=== PATIENT | male | born 1990 | race Two or more races ===

== ENCOUNTER → 2025-03-13 | Outpatient (CLI) | payer OTHER, SELFPAY ==
--- NOTE | 2025-03-13 09:44 | XR_ITS ---
EXAMINATION: Ankle, left 3 views . Technique: Ankle AP, oblique, lateral 3 views Date and time of exam: March 13, 2025 [id number] hours INDICATIONS: Ankle injury one week ago with pain FINDINGS: No ankle fracture or dislocation Mild osteoarthritis tibiotalar joint IMPRESSION: No ankle fracture or dislocation
== END | disposition home or self-care (01) ==
LOC: CDIM 09:12
PROVIDERS: PCP Physician Assistant; Referring Provider Physician Assistant; Visit Provider Physician Assistant
DX: S93.402A Sprain of unspecified ligament of left ankle, initial encounter (principal); X58.XXXA Exposure to other specified factors, initial encounter
CPT/HCPCS: 73610